=== PATIENT | female | born 1995 | race Caucasian/White ===

== ENCOUNTER 2018-04-20 08:46 | Emergency (ER) | payer MEDICAID ==
--- NOTE | 2018-04-20 09:38 | ED PDOC ---
HPI: Skin/Bite Injury Time Seen by Provider: 04/20/18 09:06 Chief Complaint (Provider): Skin infection History Per: Patient History/Exam Limitations: no limitations Onset/Duration Of Symptoms: Days (3 days) Additional Complaint(s): Pt. with bumps under her right armpit and back. Has pain and ?drainage. No weakness, nausea, diarrhea. Has fever, but no measured. No headaches. Seen 2 days ago for dental pain and dc with antibiotics at [facility]. Denies being preg. Past Medical History Reviewed: Nursing Documentation, Vital Signs Vital Signs: Last Vital Signs Temp 98.2 F 04/20/18 09:05 Pulse 81 04/20/18 09:05 Resp 21 04/20/18 09:05 BP 169/102 H 04/20/18 09:05 Pulse Ox 99 04/20/18 09:05 - Medical History PMH: No Chronic Diseases - Surgical History Surgical History: No Surg Hx - Family History Family History: States: Unknown Family Hx - Immunization History Hx Tetanus Toxoid Vaccination: No Hx Influenza Vaccination: No Hx Pneumococcal Vaccination: No - Home Medications Home Medications: Ambulatory Orders Medication Instructions Recorded Amoxicillin/Clavulanate [Augmentin 1 tab PO BID #14 tab 02/14/18 875 MG-125 MG] Ibuprofen [Motrin] 600 mg PO Q6 PRN #20 tab 02/14/18 Acetaminophen with Codeine 1 tab PO Q8 PRN #18 tab 04/17/18 [Tylenol with Codeine No. 3 300 mg-30 mg] Penicillin VK [Penicillin VK Tab] 1 tab PO BID #20 tab 04/17/18 Clindamycin [Cleocin] 300 mg PO QID 7 Days cap 04/20/18 Ibuprofen [Motrin] 600 mg PO TID 7 Days tab 04/20/18 - Allergies Allergies/Adverse Reactions: Allergies Allergy/AdvReac Type Severity Reaction Status Date / Time aspirin Allergy Verified 02/14/18 09:29 Review of Systems Constitutional: Positive for: Fever. Negative for: Weakness ENT: Negative for: Nose Congestion, Throat Pain Cardiovascular: Negative for: Chest Pain, Light Headedness Respiratory: Negative for: Cough, Shortness of Breath Gastrointestinal: Negative for: Nausea, Vomiting, Abdominal Pain Musculoskeletal: Positive for: Back Pain. Negative for: Neck Pain, Shoulder Pain, Arm Pain Skin: Positive for: Rash Neurological: Negative for: Weakness Physical Exam - Reviewed Nursing Documentation Reviewed: Yes Vital Signs Reviewed: Yes - Physical Exam Appears: Positive for: Non-toxic, No Acute Distress Head Exam: Positive for: ATRAUMATIC, NORMAL INSPECTION, NORMOCEPHALIC Skin: Positive for: Rash (R arm pit near begining of arm: 1 erythematous area tender with induration 2cm diameter, no fluctuance; 1 0.5cm diameter erythema with dried purulent area in the center, no fluctuance or induration. R lateral upper back: with 3cm diameter induration tender area with purulent drainage and erythema.) Neck: Positive for: Normal, Painless ROM Cardiovascular/Chest: Positive for: Regular Rate, Rhythm Respiratory: Positive for: CNT, Normal Breath Sounds Gastrointestinal/Abdominal: Positive for: Normal Exam, Soft. Negative for: Tenderness Back: Negative for: L CVA Tenderness, R CVA Tenderness Extremity: Negative for: Tenderness, Pedal Edema - ECG O2 Sat by Pulse Oximetry: 99 Pulse Ox Interpretation: Normal - Progress ED Course And Treament: 943: Abscess and cellulitis. Purulent material evacuate as much as possible on the back with cx sent. AAOx3. Stop current antibiotics and start new one. Disposition - Clinical Impression Clinical Impression: Cellulitis, Abscess - Patient ED Disposition Is Patient to be Admitted: No Counseled Patient/Family Regarding: Diagnosis, Need For Followup, Rx Given - Disposition Referrals: [facility], [facility] within [facility] [Outside] - 04/21/18 Disposition: Routine/Home Disposition Time: 09:45 Condition: STABLE Additional Instructions: Return if not better in 3 days. Detenga kimberly antibiticos actuales e inicie el nuevo para el que le dimos mitchell receta. Prescriptions: Clindamycin [Cleocin] 300 mg PO QID 7 Days cap Ibuprofen [Motrin] 600 mg PO TID 7 Days tab Instructions: Cellulitis and Erysipelas (Skin Infections), Skin Abscess Print Language: IRISH
[2018-04-20 10:02] VITALS: BP 160/90; PULSE 78; RESP 20; TEMP 97; O2SAT 98
== END 2018-04-20 10:02 | disposition home or self-care (01) ==
LOC: H.ER 08:46
DX: L08.9 Local infection of the skin and subcutaneous tissue, unspecified (principal); L02.212 Cutaneous abscess of back [any part, except buttock and flank]; B95.62 Methicillin resistant Staphylococcus aureus infection as the cause of diseases classified elsewhere
CPT/HCPCS: 87070; 87181; 96372; 99282; J1885